=== PATIENT | female | born 1965 | race Caucasian/White ===

== ENCOUNTER 2016-12-31 16:58 | Emergency (ER) | payer OTHER ==
[2016-12-31 17:16] VITALS: BP 139/79; PULSE 83; RESP 18; TEMP 98.7
[2016-12-31] MEDS ORDERED: KETOROLAC 30 MG/ML 1 ML VIAL IM STA (17:33)
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
== END 2016-12-31 17:45 | disposition home or self-care (01) ==
LOC: EC 16:58
DX: G89.29 Other chronic pain (principal); M54.5 Low back pain; M25.569 Pain in unspecified knee; M25.559 Pain in unspecified hip; F17.200 Nicotine dependence, unspecified, uncomplicated
CPT/HCPCS: 99282